=== PATIENT | male | born 1970 | race Caucasian/White ===

== ENCOUNTER 2022-12-09 12:59 | Emergency (ER) | payer OTHER, SELFPAY ==
--- NOTE | ~2022-12-09 | XR_ITS ---
Lumbosacral Spine: AP and lateral views Clinical History: Pain Findings: There is a mild compression fracture deformity of L4, age indeterminate. There is moderate to advanced facet arthropathy throughout the lumbar spine. There is mild to moderate degenerative dis c narrowing at L5-S1. The intervertebral disc spaces are preserved. The sacroiliac joints are normal ly outlined. Impression: Mild compression fracture of L4, age indeterminate. MR could be considered to evaluate for acute david ow edema. Extensive facet joint arthropathy, as above. Reviewed, dictated and finalized at location M. Impression: Mild compression fracture of L4, age indeterminate. MR could be considered to e valuate for acute marrow edema. Extensive facet joint arthropathy, as above.
--- NOTE | ~2022-12-09 | XR_ITS ---
AP view of the pelvis and AP and lateral views of the left hip Clinical history: Pain Findings: No acute fracture or dislocation is seen. Osseous alignment is anatomic. There is minimal d egenerative change of bilateral hip joints. Soft tissues are unremarkable. Impression: Minimal degenerative change of the bilateral hip joints. No fracture or dislocation seen. Reviewed, dictated and finalized at location . Impression: Minimal degenerative change of the bilateral hip joints. No fracture or dislocation seen.
[2022-12-09 12:59] VITALS: BP 135/100; PULSE 62; RESP 16; TEMP 36.3; O2SAT 100
[2022-12-09] MEDS: KETOROLAC (*BKC) 60 MG/2 ML VIAL IM (14:09)
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
[2022-12-09] MEDS: MORPHINE SULFATE (*CRX) 4 MG/ML INJ IM (14:44)
== END 2022-12-09 15:17 | disposition home or self-care (01) ==
PROVIDERS: Emergency Provider Emergency Medicine
DX: S32.000A Wedge compression fracture of unspecified lumbar vertebra, initial encounter for closed fracture (principal); S39.012A Strain of muscle, fascia and tendon of lower back, initial encounter; S76.212A Strain of adductor muscle, fascia and tendon of left thigh, initial encounter; I10 Essential (primary) hypertension; Z79.899 Other long term (current) drug therapy; V89.0XXA Person injured in unspecified motor-vehicle accident, nontraffic, initial encounter
CPT/HCPCS: 72100; 73502; 73610; 96372; 99284; J1885; J2270